=== PATIENT | male | born 1970 | race Asian ===

== ENCOUNTER 2023-02-17 22:43 | Emergency (ER) | payer BC ==
[~2023-02-17] VITALS: Ht 175.3 cm; Wt 93.0 kg
[2023-02-17 23:15] VITALS: BP_SYST 127
[2023-02-18] MEDS ORDERED: ACYC-133 PO (01:20)
[2023-02-18] MEDS ORDERED: PRED20TA PO (01:20)
[2023-02-18] MEDS ORDERED: HYDR-3917 PO (01:20)
[2023-02-18] MEDS ORDERED: IBUP-1971 PO (01:20)
== END 2023-02-18 01:40 | disposition home or self-care (01) ==
LOC: SED 22:43
DX: B02.9 Zoster without complications (principal)
CPT/HCPCS: 99283